=== PATIENT | female | born 1940 | race Caucasian/White ===

== ENCOUNTER 2022-09-17 08:57 | Outpatient (CLI) | payer MEDICARE, OTHER ==
[2022-09-17] MEDS ORDERED: Iopamidol 370 76% 100 ML VIAL ONE (10:49)
== END 2022-09-17 08:58 | disposition home or self-care (01) ==
LOC: CT 08:57
PROVIDERS: ATTEND Physician Assistant Medical
DX: R14.0 Abdominal distension (gaseous) (principal); K86.2 Cyst of pancreas; K59.09 Other constipation; N20.0 Calculus of kidney
CPT/HCPCS: 74177; 82565; Q9967

== ENCOUNTER 2022-12-02 08:44 | Outpatient (CLI) | payer MEDICARE, OTHER | END 2022-12-02 08:45 | disposition home or self-care (01) | LOC: ULT 08:44 | PROVIDERS: ATTEND Family Medicine | DX: R10.30 Lower abdominal pain, unspecified (principal); N13.30 Unspecified hydronephrosis; N28.89 Other specified disorders of kidney and ureter; R39.198 Other difficulties with micturition | CPT/HCPCS: 76700; 76856 ==

== ENCOUNTER 2023-08-25 09:28 | Outpatient (CLI) | payer MEDICARE, OTHER ==
[~2023-08-25 09:28] MED LIST: Magnevist 469MG/ML 20 ML VIAL ONE
== END 2023-08-25 09:29 | disposition home or self-care (01) ==
LOC: MRI 09:28
PROVIDERS: ATTEND Psychiatry & Neurology Neurology
DX: M48.02 Spinal stenosis, cervical region (principal); R51.9 Headache, unspecified; M47.812 Spondylosis without myelopathy or radiculopathy, cervical region; M47.813 Spondylosis without myelopathy or radiculopathy, cervicothoracic region; I67.89 Other cerebrovascular disease
CPT/HCPCS: 70553; 72156; 82565

== ENCOUNTER 2024-06-08 14:52 | Outpatient (CLI) | payer MEDICARE, OTHER | END 2024-06-08 14:53 | disposition home or self-care (01) | LOC: RAD 14:52 | PROVIDERS: ATTEND Internal Medicine | DX: R91.8 Other nonspecific abnormal finding of lung field (principal) | CPT/HCPCS: 71046 ==

== ENCOUNTER 2024-06-09 10:03 | Outpatient (CLI) | payer MEDICARE, OTHER | END 2024-06-09 10:04 | disposition home or self-care (01) | LOC: CT 10:03 | PROVIDERS: ATTEND Psychiatry & Neurology Neurology | DX: R51.9 Headache, unspecified (principal) | CPT/HCPCS: 70450 ==

== ENCOUNTER 2025-03-07 11:39 | Outpatient (CLI) | payer MEDICARE | END 2025-03-07 11:40 | disposition home or self-care (01) | LOC: BICMAMMO 11:39 | PROVIDERS: ATTEND Internal Medicine Hematology & Oncology | DX: M81.8 Other osteoporosis without current pathological fracture (principal); C50.111 Malignant neoplasm of central portion of right female breast; C50.112 Malignant neoplasm of central portion of left female breast | CPT/HCPCS: 77080 ==